=== PATIENT | female | born 1985 | race Caucasian/White ===

== ENCOUNTER 2017-12-10 16:25 | Inpatient (IN) | payer OTHER ==
[2017-12-10] MEDS ORDERED: BUTORPHANOL TARTRATE 1 MG/ML VIAL IVPUSH ONE (16:30)
[2017-12-10] MEDS ORDERED: PROMETHAZINE HCL 25 MG/1 ML VIAL IVPUSH ONE (16:30)
[2017-12-10 17:41] VITALS: BMI 34.2
[2017-12-10] MEDS ORDERED: DEXTROSE 5%-LACTATED RINGERS 1,000 ML IV SCH (18:00)
[2017-12-10 18:50] LABS: BASO % 0.3 % (0-2.0); EOS % 0.6 % (0-4.5); HEMATOCRIT 40.6 % (32.4-45.2); HEMOGLOBIN 13.7 GM/dL (10.7-15.3); LYMPH % 19.8 % (8-40); MCH 30.6 pg (25.7-33.7); MCHC 33.7 g/dl (32.0-36.0); MEAN CELL VOLUME 90.9 fl (80-96); MEAN PLT VOLUME 8.7 fl (7.5-11.1); MONO % 4.9 % (3.8-10.2); NEUT % 74.4 % (42.8-82.8); PLATELET COUNT 281 K/MM3 (134-434); RBC 4.47 M/mm3 (3.60-5.2); RDW 13.9 % (11.6-15.6); WHITE BLOOD COUNT 9.5 K/mm3 (4.0-10.0)
[2017-12-10 19:06] LABS: INR 0.93 (0.82-1.09); PROTHROMBIN TIME (PATIENT) 10.5 SEC (9.98-11.88)
[2017-12-10 19:09] LABS: ACTIVATED PTT 27.6 SECONDS (26.9-34.4)
[2017-12-10] MEDS ORDERED: BUTORPHANOL TARTRATE 1 MG/ML VIAL ONE ×2 (19:26)
[2017-12-10] MEDS ORDERED: PROMETHAZINE HCL 25 MG/1 ML VIAL ONE (19:26)
[2017-12-10 20:09] LABS: ANION GAP 10 (8-16); BLOOD UREA NITROGEN 7 mg/dL (7-18); CALCIUM 8.2 mg/dL (8.5-10.1); CHLORIDE 107 mmol/L (98-107); CO2 20 mmol/L (21-32); CREATININE 0.6 mg/dL (0.55-1.02); GLUCOSE,RANDOM 111 mg/dL (74-106); POTASSIUM 4.1 mmol/L (3.5-5.1); SODIUM 137 mmol/L (136-145)
--- NOTE | 2017-12-10 21:09 | HP ---
Past Medical History - Admission Chief Complaint: Labor pain History of Present Illness: 32 yo @ 39 weeks gestation, EDC 12/18/17, admitted for labor pain. Upon admission she was 4cm dilated with intact membrane. History Source: Patient Limitations to Obtaining History: No Limitations - Past Medical History ...: 2 ...Para: 1 ...Term: 1 ...: 0 ...Spon : 0 ...Induced : 0 ...Multiple Gestation: 0 ...LMP: 03/01/17 ... Weeks Gestation by Dates: 40.4 ...EDC by Dates: 12/06/17 ...EDC by Sono: 12/18/17 - Past Surgical History Past Surgical History: Yes: None Hx Myomectomy: No Hx Transabdominal Cerclage: No - Smoking History Smoking history: Never smoked Have you smoked in the past 12 months: No - Alcohol/Substance Use Hx Alcohol Use: No - Social History Usual Living Arrangement: Yes: With Significant Other History of Recent Travel: No Home Medications - Allergies Allergies/Adverse Reactions: Allergies Allergy/AdvReac Type Severity Reaction Status Date / Time No Known Allergies Allergy Verified 12/10/17 17:29 - Home Medications Home Medications: Ambulatory Orders Ferrous Sulfate [Feosol] 325 mg PO DAILY 12/10/17 Vitamins (Sjr) - 1 tab PO DAILY 12/10/17 Review of Systems - Review of Systems Constitutional: reports: No Symptoms Eyes: reports: No Symptoms HENT: reports: No Symptoms Neck: reports: No Symptoms Cardiovascular: reports: No Symptoms Respiratory: reports: No Symptoms Gastrointestinal: reports: No Symptoms Genitourinary: reports: Pain Breasts: reports: No Symptoms Reported Musculoskeletal: reports: No Symptoms Integumentary: reports: No Symptoms Neurological: reports: No Symptoms Endocrine: reports: No Symptoms Hematology/Lymphatic: reports: No Symptoms Psychiatric: reports: No Symptoms Pain Intensity: 7 Physical Exam - Maternity Vital Signs: Vital Signs Temperature 98.6 F 12/10/17 20:00 Pulse Rate 87 12/10/17 20:00 Respiratory Rate 12/10/17 20:00 Blood Pressure 110/69 12/10/17 20:00 O2 Sat by Pulse Oximetry (%) Constitutional: Yes: Well Nourished Eyes: Yes: Conjunctiva Clear HENT: Yes: Atraumatic Neck: Yes: Supple Cardiovascular: Yes: Regular Rate and Rhythm Lungs: Clear to auscultation - Abdominal Exam/OB Number of Fetuses: Single Presentation: Vertex Contractions: Yes Regularity: Regular - Vaginal Exam/OB Dilatation (cm): 4 Presentation: Vertex/Position - Physical Exam ...Motor Strength: WNL Psychiatric: Yes: Alert, Oriented - Labs Lab Results: CBC, BMP 12/10/17 18:20 12/10/17 18:20 Problem List - Problems (1) Pain during labor Code(s): O99.89 - OTH DISEASES AND CONDITIONS COMPL PREG/CHLDBRTH; R52 - PAIN, UNSPECIFIED (2) 39 weeks gestation of Code(s): Z3A.39 - 39 WEEKS GESTATION OF Assessment/Plan Active labor Analgesia as needed Anticipate
[2017-12-11] MEDS ORDERED: OXYTOCIN 20 UNITS in 0.9% NS 20 UNIT/1,000 ML INFUS.BAG IV ONE (00:16)
[2017-12-11] MEDS ORDERED: METHYLERGONOVINE MALEATE 0.2 MG/1 ML AMP IM PRN (00:39)
[2017-12-11] MEDS ORDERED: BENZOCAINE 20% 57 GM BOTTLE TP PRN (00:39)
[2017-12-11] MEDS ORDERED: WITCH HAZEL 50% (TUCKS) 40 PAD/JAR PAD TP PRN (00:39)
[2017-12-11] MEDS ORDERED: BENZOCAINE 28 GM HEMORRHOIDAL OINTMENT TP PRN (00:39)
[2017-12-11] MEDS ORDERED: BISACODYL 10 MG SUPP.RECT RC PRN (00:39)
--- NOTE | 2017-12-11 00:43 | PN ---
Delivery - Delivery Vaginal Delivery: Spontaneous Type of Anesthesia: Local Episiotomy/Laceration: None EBL (cc): 250 Delivery, Single - Feeding Plan Initial Plan: Elected not to breastfeed exclusively throughout hospitalization Remarks - Remarks Remarks: Normal spontaneous vaginal delivery of a live girl over intact perineum. Nose / Oropharynx suctioned @ perineum. Nuchal cord x 1 clamped and cut. Placenta expelled spontaneously intact. Mother in stable condition.
[2017-12-11] MEDS ORDERED: OXYTOCIN 20 UNITS in 0.9% NS 20 UNIT/1,000 ML INFUS.BAG IV SCH (00:45)
[2017-12-11] MEDS: FERROUS SO4 325 MG TABLET (FP) PO SCH ×3 (08:37→18:17)
[2017-12-11] MEDS: PRENATAL VITAMINS W/ FOLIC ACID TABLET (FP) PO SCH (09:39)
--- NOTE | 2017-12-12 00:15 | PN ---
Post Progress Note Type of Delivery: Vital Signs: Vital Signs Temperature 98.9 F 12/11/17 19:00 Pulse Rate 89 12/11/17 19:00 Respiratory Rate 20 12/11/17 19:00 Blood Pressure 124/74 12/11/17 19:00 O2 Sat by Pulse Oximetry (%) 100 12/11/17 01:15 Breast Exam: Yes: Soft Uterus: Yes: Fundus Firm Abdomen/GI: Yes: Abdomen soft Lochia: Yes: Rubra Lochia, amount: Small Extremities: Yes: Calves non-tender Perineum: Yes: Intact Activity: Ambulating - Labs Labs: CBC WBC 9.5 K/mm3 (4.0-10.0) 12/10/17 18:20 RBC 4.47 M/mm3 (3.60-5.2) 12/10/17 18:20 Hgb 13.7 GM/dL (10.7-15.3) 12/10/17 18:20 Hct 40.6 % (32.4-45.2) 12/10/17 18:20 MCV 90.9 fl (80-96) 12/10/17 18:20 MCH 30.6 pg (25.7-33.7) 12/10/17 18:20 MCHC 33.7 g/dl (32.0-36.0) 12/10/17 18:20 RDW 13.9 % (11.6-15.6) 12/10/17 18:20 Plt Count 281 K/MM3 (134-434) 12/10/17 18:20 MPV 8.7 fl (7.5-11.1) 12/10/17 18:20 Neutrophils % 74.4 % (42.8-82.8) 12/10/17 18:20 Lymphocytes % 19.8 % (8-40) 12/10/17 18:20 Monocytes % 4.9 % (3.8-10.2) 12/10/17 18:20 Eosinophils % 0.6 % (0-4.5) 12/10/17 18:20 Basophils % 0.3 % (0-2.0) 12/10/17 18:20 Assessment/Plan oob reg diet continue care
[2017-12-12] MEDS: ACETAMINOPHEN 325 MG TABLET (FP) PO PRN ×2 (02:23→20:48)
[2017-12-12] MEDS: IBUPROFEN 600 MG TABLET (FP) PO PRN ×2 (02:23→20:48)
[2017-12-12] MEDS: FERROUS SO4 325 MG TABLET (FP) PO SCH ×3 (07:47→16:53)
[2017-12-12 08:25] LABS: BASO % 0.3 % (0-2.0); EOS % 1.8 % (0-4.5); HEMATOCRIT 29.8 % (32.4-45.2); HEMOGLOBIN 9.9 GM/dL (10.7-15.3); LYMPH % 37.7 % (8-40); MCH 30.3 pg (25.7-33.7); MCHC 33.2 g/dl (32.0-36.0); MEAN CELL VOLUME 91.2 fl (80-96); MEAN PLT VOLUME 8.7 fl (7.5-11.1); NEUT % 55.2 % (42.8-82.8); PLATELET COUNT 234 K/MM3 (134-434); RBC 3.26 M/mm3 (3.60-5.2); WHITE BLOOD COUNT 9.4 K/mm3 (4.0-10.0)
[2017-12-12] MEDS: PRENATAL VITAMINS W/ FOLIC ACID TABLET (FP) PO SCH (09:20)
[2017-12-12] MEDS ORDERED: SENNOSIDES/DOCUSATE COMBO (SENNA PLUS) TABLET (UD) PO PRN (22:00)
--- NOTE | 2017-12-13 07:34 | PN ---
Post Progress Note - Subjective Subjective: no complains Post Day: 2 Type of Delivery: Vital Signs: Vital Signs Temperature 98.8 F 12/12/17 21:00 Pulse Rate 93 H 12/12/17 21:00 Respiratory Rate 18 12/12/17 21:00 Blood Pressure 115/73 12/12/17 21:00 O2 Sat by Pulse Oximetry (%) 100 12/11/17 01:15 Breast Exam: Yes: Soft, Other (both bottle & breast ). No: Engorged Uterus: Yes: Fundus Firm, Fundus below umbilicus, Non-tender Lochia: Yes: Rubra Lochia, amount: Moderate Extremities: Yes: Calves non-tender Perineum: Yes: Intact Activity: Ambulating - Labs Labs: CBC WBC 9.4 K/mm3 (4.0-10.0) 12/12/17 07:15 RBC 3.26 M/mm3 (3.60-5.2) L D 12/12/17 07:15 Hgb 9.9 GM/dL (10.7-15.3) L D 12/12/17 07:15 Hct 29.8 % (32.4-45.2) L D 12/12/17 07:15 MCV 91.2 fl (80-96) 12/12/17 07:15 MCH 30.3 pg (25.7-33.7) 12/12/17 07:15 MCHC 33.2 g/dl (32.0-36.0) 12/12/17 07:15 RDW 14.0 % (11.6-15.6) 12/12/17 07:15 Plt Count 234 K/MM3 (134-434) 12/12/17 07:15 MPV 8.7 fl (7.5-11.1) 12/12/17 07:15 Neutrophils % 55.2 % (42.8-82.8) D 12/12/17 07:15 Lymphocytes % 37.7 % (8-40) D 12/12/17 07:15 Monocytes % 5.0 % (3.8-10.2) 12/12/17 07:15 Eosinophils % 1.8 % (0-4.5) D 12/12/17 07:15 Basophils % 0.3 % (0-2.0) 12/12/17 07:15 Assessment/Plan stable. anemia counselled discharge today
[2017-12-13] MEDS: FERROUS SO4 325 MG TABLET (FP) PO SCH (08:54)
[2017-12-13] MEDS: PRENATAL VITAMINS W/ FOLIC ACID TABLET (FP) PO SCH (09:13)
[2017-12-13 11:29] VITALS: BP 100/59; PULSE 73; TEMP 98.9
== END 2017-12-13 11:50 | disposition home or self-care (01) | DRG 560 ==
LOC: JLDR 16:25 → J3W 12-11 02:12
PROVIDERS: ADMIT Obstetrics & Gynecology; ATTEND Obstetrics & Gynecology
PROC: 10E0XZZ Delivery of Products of Conception, External Approach (ICD-10-PCS; principal; 2017-12-11)
DX: O69.81X0 Labor and delivery complicated by cord around neck, without compression, not applicable or unspecified (principal); Z3A.39 39 weeks gestation of pregnancy; Z37.0 Single live birth
CPT/HCPCS: 36415; 59409; 80048; 85025; 85461; 85610; 85730; 86593; 86850; 86870; 86900; 86901; 86902; 86999

== ENCOUNTER 2020-08-05 09:10 | Inpatient (IN) | payer OTHER ==
--- NOTE | 2020-08-05 11:51 | PD.OB.PROG ---
Past Medical History - Primary Care Physician PCP:: Willie Bunn Documenting Provider Type: Attending - Admission Chief Complaint: Episode of self-limited bleding with moderate size clot at 4 am today. 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 Weeks Gestation by Dates: 35.2 ...EDC by Dates: 08/07/20 ...EDC by Sono: 08/12/20 Heme/Onc: Denies/None Infectious Disease: Denies/None Psych: Denies/None Musculoskeletal: Denies/None Rheumatology: Denies/None ENT: Denies/None Endocrine: Denies/None Dermatology: Denies/None - Past Surgical History Past Surgical History: Yes: None, - Smoking History Smoking history: Never smoked Have you smoked in the past 12 months: No - Alcohol/Substance Use Hx Alcohol Use: No History of Substance Use: reports: None - Social History History of Recent Travel: No Review of Systems - Review of Systems Constitutional: reports: No Symptoms Eyes: denies: No Symptoms HENT: reports: No Symptoms Neck: denies: No Symptoms Cardiovascular: reports: No Symptoms Respiratory: reports: No Symptoms Gastrointestinal: reports: No Symptoms Genitourinary: reports: No Symptoms Breasts: reports: No Symptoms Reported Musculoskeletal: reports: No Symptoms Integumentary: reports: No Symptoms Neurological: reports: No Symptoms Endocrine: reports: No Symptoms Hematology/Lymphatic: denies: No Symptoms Psychiatric: reports: No Symptoms Physical Exam - Obstetrical Vital Signs: Vital Signs Temperature 98.5 F 08/05/20 09:33 Pulse Rate 99 H 08/05/20 09:33 Respiratory Rate 20 08/05/20 09:33 Blood Pressure 109/64 08/05/20 09:33 O2 Sat by Pulse Oximetry (%) Constitutional: Yes: No Distress HENT: Yes: Atraumatic Neck: Yes: Supple Cardiovascular: Yes: Regular Rate and Rhythm Lungs: Other Breast(s): Yes: Other - Abdominal Exam/OB Number of Fetuses: Single Presentation: Vertex Contractions: No Regularity: Irritability Intensity: Unaware Monitor Mode: External Heart Rate (range): 150 Category: I Accelerations: Uniform Decelerations: None - Vaginal Exam/OB Vaginal Exam Deferred: No Speculum Exam: Yes (small clot in vaginal vault, cervix is closed, no active bleeding, no pooli) Dilatation (cm): 0 Effacement (%): 0 Amniotic Membrane Status: Intact - Physical Exam Musculoskeletal: Yes: WNL Extremities: Yes: WNL Edema: Yes Edema: LLE: Trace, RLE: Trace Integumentary: Yes: WNL Deep Tendon Reflex Grade: Normal +2 ...Motor Strength: WNL Psychiatric: Yes: Alert, Oriented Assessment/Plan 34 y/o @ 34.4wks, self-limited episode of bleeding, placenta previa, s/p rhogam and betas. Patient denies anything per vagina, reassuring status, sono and CBC ordered. Patient is in stable condition and reassuring status. Patient was extensively counseled regarding diagnosis of Placenta previa, all questions answered. Scheduled C/S on 08/17/20 and patient discussed with ARSENIO, Dr Patricia. -F/U results -COntinuous monitoring -Prolonged observation
[2020-08-05 12:28] LABS: BASO % 0.3 % (0-2.0); EOS % 0.7 % (0-4.5); HEMOGLOBIN 11.6 GM/dL (10.7-15.3); LYMPH % 21.3 % (8-40); MCH 30.1 pg (25.7-33.7); MEAN CELL VOLUME 88.5 fl (80-96); MEAN PLT VOLUME 7.9 fl (7.5-11.1); MONO % 6.4 % (3.8-10.2); NEUT % 71.3 % (42.8-82.8); PLATELET COUNT 316 K/MM3 (134-434); RBC 3.84 M/mm3 (3.60-5.2); RDW 13.6 % (11.6-15.6); WHITE BLOOD COUNT 7.6 K/mm3 (4.0-10.0)
[2020-08-05 14:24] LABS: BASO % 0.5 % (0-2.0); EOS % 0.7 % (0-4.5); HEMOGLOBIN 11.8 GM/dL (10.7-15.3); LYMPH % 22.6 % (8-40); MCH 30.5 pg (25.7-33.7); MCHC 33.9 g/dl (32.0-36.0); MEAN CELL VOLUME 89.9 fl (80-96); MONO % 6.6 % (3.8-10.2); NEUT % 69.6 % (42.8-82.8); PLATELET COUNT 304 K/MM3 (134-434); RBC 3.89 M/mm3 (3.60-5.2); RDW 13.7 % (11.6-15.6); WHITE BLOOD COUNT 7.5 K/mm3 (4.0-10.0)
[2020-08-05 14:29] LABS: INR 1.06 (0.83-1.09)
[2020-08-05 14:32] LABS: ACTIVATED PTT 28.5 SECONDS (25.2-36.5)
[2020-08-05] MEDS ORDERED: ONDANSETRON 4 MG/2 ML VIAL IVPUSH PRN (14:45)
[2020-08-05] MEDS ORDERED: morphine SULFATE/PF 0.5 MG/ML (2cc Syringe - QUVA) EP ONE (14:45)
--- NOTE | 2020-08-05 14:46 | PN ---
Progress Note (short form) - Note Progress Note: Patient known to me. First bleed, presented to [facility] 07/05; received BMZ x 2 Second bleed after intercourse, presented to L&D for evaluation Reports a third bleed, for which she did not come for evaluation or previously disclose Nw 4th bleed this morning at 4AM, but presented at 9AM Not currently bleeding on presentation However in light of 4th bleed, patient may not be reliable to present for evaluation, including in a timely matter, decision made to proceed with Ed/Jodie Weeks MD
[2020-08-05] MEDS ORDERED: ELECTROLYTE-148 SOLN 500 ML IV ONE (14:48)
[2020-08-05] MEDS ORDERED: CITRIC ACID/SODIUM CITRATE 30 ML UNIT-DOSE CUP PO ONE ×2 (14:48→14:49)
[2020-08-05 14:49] LABS: POTASSIUM 4.1 mmol/L (3.5-5.1)
--- NOTE | 2020-08-05 14:53 | HP ---
Past Medical History - Admission Chief Complaint: Vaginal Bleeding History of Present Illness: 34yo @ 35.2wks by kaleb, ATIF 08/12 here with vaginal bleeding at 4AM, passage of a clot. Known complete posterior placenta previa. 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: Alzheimer's, CVA, Dementia, Migraine, Multiple Sclerosis, Peripheral Neuropathy, Parkinson's, Seizure, Syncope, TIA, Vertigo, Other Cardiovascular: No: AFIB, Aneurysm, Aortic Insufficiency, Aortic Stenosis, CAD, CHF, Deep Vein Thrombosis, HTN, Hyperlipdemia, [place], Mitral Insufficiency, Mitral Stenosis, Murmur, Pulmonary Hypertension, Other Pulmonary: No: Asthma, Bronchitis, Cancer, COPD, O2 Dependent, Pneumonia, Previously Intubated, Pulmonary Embolus, Pulmonary Fibrosis, Sleep Apnea, Other Gastrointestinal: No: Ascites, Cancer, Constipation, Crohn's Disease, Diverticulitis, Diverticulosis, Esophageal Varices, Gastritis, GERD, GI Bleed, Hemorrhoids, Hiatal Hernia, Inflamatory Bowel Disease, Irritable Bowel Disease, Pancreatitis, Peptic Ulcer Disease, Ulcerative Colitis, Other Hepatobiliary: No: Cirrhosis, Cholelithiasis, Cholecystitis, Choledochol ithiasis, Hepatitis A, Hepatitis B, Hepatitis C, Other Renal/: No: Renal Failure, Renal Inusuff, BPH, Cancer, Hematuria, Hemodialysis, Neurogenic Bladder, Renal Calculi, UTI, Other Reproductive: No: Ectopic , Endometriosis, Fibroids, PID, Polycystic Ovary Syndrome, Postmenopausal, Other ...: 3 ...Para: 2 ...Term: 2 ...: 0 ...Spon : 0 ...Induced : 0 ...Living Children: 2 ...LMP: 12/02/19 ... Weeks Gestation by Dates: 35.2 ...EDC by Dates: 08/07/20 ...EDC by Sono: 08/12/20 Heme/Onc: No: Anemia, B12 Deficiency, Bleeding Disorder, Cancer, Current Chemotherapy, Current Radiation Therapy, Hemochromatosis, Hypercoaguable State, Myeloproliferative Synd, Sickle Cell Disease, Sickle Cell Trait, Thrombocytopeni a, Other Infectious Disease: No: AIDS, C-Diff, Herpes Zoster, HIV, MRSA, STD's, Tuberculosis, VREF, Other Psych: No: Addictions, Anxiety, Bipolar, Depression, Panic, Psychosis, Schizophrenia, Other Musculoskeletal: No: Bursitis, Chronic low back pain, Hemiparesis, Hemiplegia, Osteoarthritis, Paraplegia, Other ENT: No: Allergic Rhinitis, Sinusitis, Other Endocrine: No: Bob's Disease, Mio's Disease, Diabetes Insipidus, Diabetes Mellitus, Hyperparathyroidism, Hyperthyroidism, Hypothyroidism, Osteopenia, SIADH, Other Dermatology: No: Basal Cell, Cellulitis, Eczema, Melanoma, Psoriasis, Squamous Cell, Other - Past Surgical History Past Surgical History: Yes: None, Hx Myomectomy: No Hx Transabdominal Cerclage: No - Smoking History Smoking history: Never smoked Have you smoked in the past 12 months: No - Alcohol/Substance Use Hx Alcohol Use: No History of Substance Use: reports: None - Social History Usual Living Arrangement: Yes: With Spouse Do you think of yourself as: Straight/Heterosexual ADL: Independent History of Recent Travel: No Home Medications - Allergies Allergies/Adverse Reactions: Allergies Allergy/AdvReac Type Severity Reaction Status Date / Time No Known Allergies Allergy Verified 08/05/20 09:31 - Home Medications Home Medications: Ambulatory Orders Vitamins (Sjr) - 1 tab PO DAILY #30 tablet 12/13/17 Iron 1 tab PO DAILY 07/21/20 Review of Systems - Review of Systems Constitutional: reports: No Symptoms Cardiovascular: reports: No Symptoms Respiratory: reports: No Symptoms Gastrointestinal: reports: No Symptoms Genitourinary: reports: Vaginal Bleeding Physical Exam - Maternity Vital Signs: Vital Signs Temperature 98.5 F 08/05/20 09:33 Pulse Rate 99 H 08/05/20 09:33 Respiratory Rate 20 08/05/20 09:33 Blood Pressure 109/64 08/05/20 09:33 O2 Sat by Pulse Oximetry (%) Constitutional: Yes: Well Nourished, No Distress, Calm - Abdominal Exam/OB Number of Fetuses: Single Presentation: Vertex Contractions: Yes Regularity: Irregular Intensity: Unaware Monitor Mode: External Heart Rate Location: [facility] Category: I Accelerations: Non-Uniform Decelerations: None - Vaginal Exam/OB Vaginal Bleeding: Yes Dilatation (cm): 0 Effacement (%): 0 Amniotic Membrane Status: Intact Meconium: Light Station: -3 - Labs Lab Results: CBC, BMP 08/05/20 14:00 Imaging - Results Ultrasound: Report Reviewed Problem List - Problems (1) Placenta previa antepartum in third trimester Code(s): O44.03 - COMPLETE PLACENTA PREVIA NOS OR WITHOUT HEMOR, THIRD TRI Assessment/Plan 34yo @ 35.2wks with placenta previa, 4th bleed Admit to L&D NPO, IVFs Admission labs NICU present Proceed to OR for PLTCS, BTL. Risks of procedure reviewed all in [place] Consents signed. Lissy Weeks MD
[2020-08-05] MEDS ORDERED: ceFAZolin SODIUM 1 GM VIAL ONE (14:55)
[2020-08-05 14:57] LABS: CALCIUM 8.8 mg/dL (8.5-10.1); CREATININE 0.4 mg/dL (0.55-1.3)
[2020-08-05] MEDS ORDERED: ELECTROLYTE-148 SOLN 1,000 ML IV SCH (15:00)
[2020-08-05] MEDS ORDERED: ePHEDrine SULFATE 50 MG/1 ML AMPULE ONE (15:16)
[2020-08-05] MEDS ORDERED: OXYTOCIN 10 UNITS/ML VIAL ONE ×2 (15:24→15:31)
[2020-08-05] MEDS ORDERED: BENZOCAINE 28 GM HEMORRHOIDAL OINTMENT TP PRN (16:06)
[2020-08-05] MEDS ORDERED: BENZOCAINE 20% 57 GM BOTTLE TP PRN (16:06)
[2020-08-05] MEDS ORDERED: WITCH HAZEL 50% (TUCKS) 40 PAD/JAR PAD TP PRN (16:06)
[2020-08-05] MEDS ORDERED: METHYLERGONOVINE MALEATE 0.2 MG/1 ML AMP IM PRN (16:06)
--- NOTE | 2020-08-05 16:06 | OP ---
Operative Note - Note: Operative Date: 08/05/20 Pre-Operative Diagnosis: 35 week , Placenta Previa, Bleeding, Breech, Desires Permanent Sterilization Operation: Primary , Bialteral Tubal Ligation Findings: VMI, Breech, Apgars 9/9. No nuchal. No meconium. Weight pending Normal tubes and ovaries Post-Operative Diagnosis: Same as Pre-op Surgeon: Jennifer Weeks Cold Molding Press Operator: Alexey Mcdonald Anesthesia: Spinal Estimated Blood Loss (mls): 700 Drains, Volume Out (mls): 100 Operative Report Dictated: Yes
[2020-08-05] MEDS ORDERED: OXYTOCIN 20 UNITS in 0.9% NS 20 UNIT/1,000 ML INFUS.BAG IV SCH (16:15)
--- NOTE | 2020-08-05 17:10 | OP ---
DATE OF OPERATION: 08/05/2020 PREOPERATIVE DIAGNOSIS: A 35-week , placenta previa, bleeding, breech, desires permanent sterilization. POSTOPERATIVE DIAGNOSIS: A 35-week , placenta previa, bleeding, breech, desires permanent sterilization. PROCEDURE: Primary section, bilateral tubal ligation. SURGEON: Jennifer Weeks M.D. PRINCIPAL GIFTS OFFICER: Danii Trammell ANESTHESIA: Spinal INTRAVENOUS FLUIDS: Per anesthesia record ESTIMATED BLOOD LOSS: 700 URINE OUTPUT: 100 mL of clear urine at the end of the procedure. FINDINGS: Viable male infant, breech. Apgars 9 and 9. No nuchal, no meconium, weight pending, normal tubes and ovaries bilaterally. DESCRIPTION OF PROCEDURE: After appropriate consents were signed, patient was taken to the operating room. Spinal anesthesia was administered. The abdomen was prepped and draped in the normal sterile fashion. A sterile Hirsch catheter had been inserted prior to entry into the operating room. Anesthesia was confirmed. Timeout was performed confirming correct patient and procedure. A Pfannenstiel skin incision was made through the skin and carried through to the underlying layers until the fascia was nicked in the midline. Fascia was then extended laterally with the Weinberg scissors. The inferior aspect of the fascia was grasped with the Savana clamps, tented upwards, and the rectus muscles dissected off bluntly and with the Weinberg scissors. Attention was then paid to the superior aspect which was taken down in a similar fashion. The rectus muscles were bluntly in the midline. The peritoneum was entered bluntly. Bladder blade was inserted. Bladder flap was created with the Metzenbaum and digitally. The bladder blade was readjusted. The uterus was incised in a low transverse fashion. Clear amniotic fluid was noted. The infant was noted to be in complete breech presentation. The baby was delivered with the usual breech maneuvers without difficulty. The cord was clamped and cut, the infant was handed off to the waiting NICU staff. The placenta was then removed manually. The uterus was cleared all clot and debris. The uterus was then exteriorized. The hysterotomy was closed in 2 layers and hemostasis was achieved. Attention was then paid to the tubal ligation, which was done on the patient's right fallopian tube first, done in the modified [place] fashion with a 0 plain gut suture. Tubal segment was removed, and the tubal stumps were cauterized with the Bovie. Attention was then paid to the patient's left fallopian tube which was modified Ibis fashion without difficulty. Tubal segment was then sent off to pathology and tubal stumps were also cauterized. The right fallopian tubal stump had to be reapproximated as the knot slipped. Hemostasis was achieved with the 2nd additional knot. Hysterotomy was reexamined and noted to be bleeding in an area on the patient's right hysterotomy that had to be reapproximated with a 1-0 Vicryl to achieve hemostasis. The uterus was then returned to the abdominal cavity. The tubal stump sites were reinspected and noted to be hemostatic. Hysterotomy was noted to still be hemostatic. The muscles were then closed with a 2-0 chromic. The fascia was closed with 0 Vicryl. Subcutaneous fat was closed with 3-0 plain. Skin was closed with a 3-0 Biosyn. Bandages were applied. Sponge, lap, needle count was correct x3. Patient did receive Ancef at the start of the procedure. She was taken from the operating room to the recovery area in stable condition. MD ARIE MCCARTY/[id number]
[2020-08-05 17:49] VITALS: BMI 38.4
[2020-08-05] MEDS ORDERED: OXYTOCIN 20 UNITS in 0.9% NS 20 UNIT/1,000 ML INFUS.BAG IV ONE (18:16)
[2020-08-05] MEDS: FERROUS SO4 325 MG TABLET (FP) PO SCH (23:34)
[2020-08-06] MEDS: IBUPROFEN 800 MG/8 ML IJ IVPB PRN ×2 (01:35→08:48)
--- NOTE | 2020-08-06 07:50 | PN ---
Post Progress Note - Subjective Subjective: Pain controlled. No fevers/chills. Hirsch in place. Tolerating clears. Lochia decreasing Post Day: 1 Type of Delivery: Repeat C/S Vital Signs: Vital Signs Temperature 99 F 08/06/20 05:56 Pulse Rate 78 08/06/20 05:56 Respiratory Rate 20 08/06/20 06:00 Blood Pressure 98/52 L 08/06/20 05:56 O2 Sat by Pulse Oximetry (%) 98 08/05/20 23:59 Breast Exam: No: Soft, Engorged, Cracked Nipples, Other Uterus: No: Fundus Firm, Fundus above umbilicus, Fundus @ umbilicus, Fundus below umbilicus, Non-tender, Other Incision: No: Dressing dry and intact, Emma intact, Sutures intact, Redness, Oozing, Other Abdomen/GI: No: Abdomen soft, Abdominal Distention, Tender, Passing flatus, Tolerating PO, Other Lochia: No: Rubra, Serosa, Alba Extremities: No: Calves non-tender, Calf tenderness, Edema Perineum: No: Intact, Episiotomy, Laceration - Labs Labs: CBC WBC 7.5 K/mm3 (4.0-10.0) 08/05/20 14:00 RBC 3.89 M/mm3 (3.60-5.2) 08/05/20 14:00 Hgb 11.8 GM/dL (10.7-15.3) 08/05/20 14:00 Hct 35.0 % (32.4-45.2) 08/05/20 14:00 MCV 89.9 fl (80-96) 08/05/20 14:00 MCH 30.5 pg (25.7-33.7) 08/05/20 14:00 MCHC 33.9 g/dl (32.0-36.0) 08/05/20 14:00 RDW 13.7 % (11.6-15.6) 08/05/20 14:00 Plt Count 304 K/MM3 (134-434) 08/05/20 14:00 MPV 8.0 fl (7.5-11.1) 08/05/20 14:00 Absolute Neuts (auto) 5.2 K/mm3 (1.5-8.0) 08/05/20 14:00 Neutrophils % 69.6 % (42.8-82.8) 08/05/20 14:00 Lymphocytes % 22.6 % (8-40) 08/05/20 14:00 Monocytes % 6.6 % (3.8-10.2) 08/05/20 14:00 Eosinophils % 0.7 % (0-4.5) 08/05/20 14:00 Basophils % 0.5 % (0-2.0) 08/05/20 14:00 Nucleated RBC % 0 % (0-0) 08/05/20 14:00 Problem List - Problems (1) Placenta previa antepartum in third trimester Code(s): O44.03 - COMPLETE PLACENTA PREVIA NOS OR WITHOUT HEMOR, THIRD TRI Assessment/Plan 34yo s/p PLTCS, BTL for placenta previa Routine PP care PO pain control Labs pending OOB, ambulate, d/c patsy Anticipate d/c to home by POD#3 Lissy Weeks MD
--- NOTE | 2020-08-06 08:42 | PN ---
Progress Note (short form) - Note Progress Note: Anesthesia postop note 34 y/o F s/p spinal anesthesia /duramorph for section POD#1, vss, aaox3, pain well controlled, sensory moyor intact distally No anesthesia complications.
[2020-08-06 08:50] LABS: BASO % 0.3 % (0-2.0); EOS % 1.3 % (0-4.5); HEMATOCRIT 29.3 % (32.4-45.2); HEMOGLOBIN 9.8 GM/dL (10.7-15.3); LYMPH % 19.4 % (8-40); MCH 29.9 pg (25.7-33.7); MCHC 33.5 g/dl (32.0-36.0); MEAN CELL VOLUME 89.3 fl (80-96); MEAN PLT VOLUME 7.9 fl (7.5-11.1); MONO % 8.2 % (3.8-10.2); NEUT % 70.8 % (42.8-82.8); PLATELET COUNT 269 K/MM3 (134-434); RBC 3.29 M/mm3 (3.60-5.2); RDW 13.5 % (11.6-15.6); WHITE BLOOD COUNT 7.8 K/mm3 (4.0-10.0)
[2020-08-06] MEDS: SIMETHICONE 80 MG TAB.CHEW (FP) PO PRN ×2 (09:10→20:26)
[2020-08-06] MEDS: PRENATAL VITAMINS W/ FOLIC ACID TABLET (FP) PO SCH (09:10)
[2020-08-06] MEDS: FERROUS SO4 325 MG TABLET (FP) PO SCH ×2 (09:10→21:41)
[2020-08-06] MEDS ORDERED: BISACODYL 10 MG SUPP.RECT RC PRN (16:06)
[2020-08-06] MEDS: IBUPROFEN 600 MG TABLET (FP) PO PRN (20:25)
[2020-08-06] MEDS: oxyCODONE HCL 5 MG TABLET PO PRN (20:25)
--- NOTE | 2020-08-07 07:22 | PN ---
Progress Note (short form) - Note Progress Note: pod 2 .doing well, ambulating no excess vaginal bleeding, passing agustina n CBC, BMP 08/06/20 07:55 08/05/20 14:00 Last Vital Signs Temp Pulse Resp BP Pulse Ox 99.5 F 87 18 109/62 98 08/06/20 22:00 08/06/20 22:00 08/06/20 22:00 08/06/20 22:00 08/06/20 13:41 abdomen soft, no distension, no cva incison dry, clean , no discharge no calf tenderness no excess vaginal bleeding plan ambulate pain management plan for d/c home in am
[2020-08-07] MEDS: IBUPROFEN 600 MG TABLET (FP) PO PRN ×2 (08:49→20:52)
[2020-08-07] MEDS: oxyCODONE HCL 5 MG TABLET PO PRN ×2 (08:50→20:53)
[2020-08-07] MEDS: SIMETHICONE 80 MG TAB.CHEW (FP) PO PRN ×2 (08:50→20:52)
[2020-08-07] MEDS: PRENATAL VITAMINS W/ FOLIC ACID TABLET (FP) PO SCH (10:48)
[2020-08-07] MEDS: FERROUS SO4 325 MG TABLET (FP) PO SCH ×2 (10:48→22:00)
--- NOTE | 2020-08-07 19:35 | PATH ---
Surgical Pathology Report Patient Name: JORDYN MARIE [facility]. Rec. #: [id number] /Age/Gender: 1985 (Age: 34) / F Account: [id number] Location: [facility] OBS/COMPENSATION SPECIALIST Taken: 08/05/2020 Received: 08/06/2020 Reported: 08/07/2020 Physicians: Jennifer Weeks Specimen(s) Received A: PLACENTA B: RIGHT FALLOPIAN TUBE C: LEFT FALLOPIAN TUBE Clinical History , 34.4 beats, history placenta previa, 4 separate bleeding events, received betamethasone Final Diagnosis A. PLACENTA, SECTION: 559 G THIRD TRIMESTER PLACENTA WITH TRIVASCULAR UMBILICAL CORD AND UNREMARKABLE PLACENTAL MEMBRANES. B. FALLOPIAN TUBE, RIGHT, PARTIAL EXCISION: FULL LUMINAL PORTION OF UNREMARKABLE FALLOPIAN TUBE. C. FALLOPIAN TUBE, LEFT, PARTIAL EXCISION: FULL LUMINAL PORTION OF UNREMARKABLE FALLOPIAN TUBE. Electronically Signed Shelby Cline M.D. Gross Description A. The specimen is received fresh labeled placenta and is a 559 gram, 19 x 16 x 1.3 cm. placenta with attached membranes and umbilical cord. The attached membranes are clear, translucent, and insert marginally. The umbilical cord measures 34 cm. in length and averages 1.3 cm. in diameter. The cord inserts eccentrically, 3 cm. to the nearest margin. No true knots or strictures are identified. Cut surface of the umbilical cord reveals 3 vessels. The surface is cutler-blue with minimal fibrin deposition and appropriate caliber vessels. The maternal surface is red-brown with focal defects. Sectioning reveals red-brown, spongy parenchyma. No lesions are identified. Manager Of Drilling sections are submitted in three cassettes as follows: 1- membrane rolls and umbilical cord; 2-3- full thickness sections of placenta. B. Received in formalin labeled "right fallopian tube," is a 1.5 cm in length fallopian tube. No fimbria is identified. The outer surface is valdez-brock. Sectioning reveals an unremarkable lumen. The specimen is trisected and entirely submitted in one cassette. C. Received in formalin labeled "left fallopian tube," is a 1.0 cm in length fallopian tube. No fimbria is identified. The outer surface is valdez-brock. Sectioning reveals an unremarkable lumen. The specimen is bisected and entirely submitted in one cassette. MLSZ/08/07/2020 san/08/07/2020
[2020-08-08] MEDS: IBUPROFEN 600 MG TABLET (FP) PO PRN ×2 (05:25→21:19)
[2020-08-08] MEDS: SIMETHICONE 80 MG TAB.CHEW (FP) PO PRN ×3 (05:26→21:20)
[2020-08-08] MEDS: oxyCODONE HCL 5 MG TABLET PO PRN (05:26)
--- NOTE | 2020-08-08 05:26 | PN ---
Post Progress Note - Subjective Subjective: c/o pain scale 5-6/10 ambulating voiding without difficulty Post Day: 3 Type of Delivery: Repeat C/S Vital Signs: Vital Signs Temperature 99.0 F 08/07/20 22:00 Pulse Rate 85 08/07/20 22:00 Respiratory Rate 18 08/07/20 22:00 Blood Pressure 104/59 L 08/07/20 22:00 O2 Sat by Pulse Oximetry (%) 99 08/07/20 09:20 Breast Exam: Yes: Soft, Other (BF , pumping ). No: Engorged Uterus: Yes: Fundus Firm, Fundus below umbilicus Incision: Yes: Sutures intact (steristrips in situ). No: Redness, Oozing Abdomen/GI: Yes: Abdomen soft, Passing flatus (bm done ), Tolerating PO (diet). No: Abdominal Distention, Tender Lochia: Yes: Rubra Lochia, amount: Moderate Extremities: Yes: Calves non-tender Perineum: Yes: Intact Activity: Ambulating - Labs Labs: CBC WBC 7.8 K/mm3 (4.0-10.0) 08/06/20 07:55 RBC 3.29 M/mm3 (3.60-5.2) L 08/06/20 07:55 Hgb 9.8 GM/dL (10.7-15.3) L 08/06/20 07:55 Hct 29.3 % (32.4-45.2) L D 08/06/20 07:55 MCV 89.3 fl (80-96) 08/06/20 07:55 MCH 29.9 pg (25.7-33.7) 08/06/20 07:55 MCHC 33.5 g/dl (32.0-36.0) 08/06/20 07:55 RDW 13.5 % (11.6-15.6) 08/06/20 07:55 Plt Count 269 K/MM3 (134-434) 08/06/20 07:55 MPV 7.9 fl (7.5-11.1) 08/06/20 07:55 Absolute Neuts (auto) 5.5 K/mm3 (1.5-8.0) 08/06/20 07:55 Neutrophils % 70.8 % (42.8-82.8) 08/06/20 07:55 Lymphocytes % 19.4 % (8-40) 08/06/20 07:55 Monocytes % 8.2 % (3.8-10.2) 08/06/20 07:55 Eosinophils % 1.3 % (0-4.5) D 08/06/20 07:55 Basophils % 0.3 % (0-2.0) 08/06/20 07:55 Nucleated RBC % 0 % (0-0) 08/06/20 07:55 Problem List - Problems (1) Status post section routine follow-up Code(s): Z39.2 - ENCOUNTER FOR ROUTINE FOLLOW-UP; Z98.891 - HISTORY OF UTERINE SCAR FROM PREVIOUS SURGERY Assessment/Plan s/p rc/sction + btl day #3 stable since baby is in NICU , pt prefers to go home tomorrow. ct po care
[2020-08-08 08:19] LABS: BASO % 0.5 % (0-2.0); EOS % 2.1 % (0-4.5); HEMATOCRIT 27.8 % (32.4-45.2); HEMOGLOBIN 9.8 GM/dL (10.7-15.3); LYMPH % 32.1 % (8-40); MCH 31.6 pg (25.7-33.7); MCHC 35.2 g/dl (32.0-36.0); MEAN CELL VOLUME 89.9 fl (80-96); MEAN PLT VOLUME 7.8 fl (7.5-11.1); MONO % 7.1 % (3.8-10.2); NEUT % 58.2 % (42.8-82.8); PLATELET COUNT 298 K/MM3 (134-434); RBC 3.09 M/mm3 (3.60-5.2); RDW 13.7 % (11.6-15.6); WHITE BLOOD COUNT 6.1 K/mm3 (4.0-10.0)
[2020-08-08] MEDS: FERROUS SO4 325 MG TABLET (FP) PO SCH ×2 (09:27→21:19)
[2020-08-08] MEDS: PRENATAL VITAMINS W/ FOLIC ACID TABLET (FP) PO SCH (09:27)
--- NOTE | 2020-08-09 07:44 | DS ---
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 No: Distention Renal/: Yes: WNL. No: CVA Tenderness - Left, CVA Tenderness - Right ....Post : Yes: Uterus firm, Uterus non-tender, Moderate lochia rubra Breast(s): Yes: WNL (pumping milk) Musculoskeletal: Yes: WNL Extremities: Yes: WNL. No: Calf Tenderness Edema: LLE: Trace, RLE: Trace Wound/Incision: Yes: Clean/Dry, Well Approximated, Sutures Intact, Steri Strips. 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 po instructions given Baby still in NICU , not discharged discharge today Discharge Summary Problems reviewed: Yes Reason For Visit: PACENTA PREVIA , FOURTH BLEED Current Active Problems Placenta previa antepartum in third trimester (Acute) Status post section routine follow-up (Acute) Condition: Stable - Instructions Diet, Activity, Other Instructions: Regular Diet Follow up in one week for an incision check with Dr. Weeks Referrals: Jennifer Weeks MD [Staff Physician] - Disposition: HOME - Home Medications Comprehensive Discharge Medication List: Ambulatory Orders Vitamins (Sjr) - 1 tab PO DAILY #30 tablet 12/13/17 Iron 1 tab PO DAILY 07/21/20 Breast Pump 1 each MC 5XD 30 Days #1 each 08/05/20 Ferrous Sulfate [Feosol] 325 mg PO DAILY #30 tablet 08/05/20 Ibuprofen 600 mg PO Q6H PRN #30 tablet 08/05/20 Oxycodone HCl/Acetaminophen [Percocet 5-325 mg Tablet -] 1 - 2 tab PO Q6H PRN #20 tab MDD 20 08/05/20
[2020-08-09] MEDS: FERROUS SO4 325 MG TABLET (FP) PO SCH (10:54)
[2020-08-09] MEDS: PRENATAL VITAMINS W/ FOLIC ACID TABLET (FP) PO SCH (10:54)
[2020-08-09 13:15] VITALS: BP 112/54; PULSE 87; TEMP 98.8
== END 2020-08-09 13:05 | disposition home or self-care (01) | DRG 540 ==
LOC: JDEL 09:10 → JLDR 13:35 → J3W 21:43
PROVIDERS: ADMIT Obstetrics & Gynecology; ATTEND Obstetrics & Gynecology
PROC: 10D00Z1 Extraction of Products of Conception, Low, Open Approach (ICD-10-PCS; principal; 2020-08-05)
PROC: 0UL70ZZ Occlusion of Bilateral Fallopian Tubes, Open Approach (ICD-10-PCS; 2020-08-05)
DX: O44.13 Complete placenta previa with hemorrhage, third trimester (principal); O32.1XX0 Maternal care for breech presentation, not applicable or unspecified; O99.214 Obesity complicating childbirth; E66.9 Obesity, unspecified; Z3A.35 35 weeks gestation of pregnancy; Z37.0 Single live birth; Z30.2 Encounter for sterilization
CPT/HCPCS: 36415; 80048; 85025; 85461; 85610; 85730; 86780; 86850; 86870; 86900; 86901; 86902; 86999; 87389; 88302-TC; 88307-TC; C9803; U0003